=== PATIENT | female | born 1980 | race African-American/Black ===

== ENCOUNTER 2017-01-26 21:17 | Emergency (ER) | payer MEDICARE, OTHER ==
[~2017-01-26 21:17] MED LIST: BUTA1CAP PO; IBUP800T23 PO; ROBA750T PO; ZOFR4TAB PO
[2017-01-26 21:18] VITALS: BP 123/61; PULSE 90; RESP 16; TEMP 98.4; O2SAT 98
[2017-01-26] MEDS ORDERED: SODIUM CHLOR 0.9% 1000 ML INJ 1,000 ML IV ONE (23:43)
[2017-01-26] MEDS ORDERED: diphenhydrAMINE HCL 50 MG/ML VIAL IV PUSH ONE (23:45)
[2017-01-26] MEDS ORDERED: DEXAMETHASONE SOD PHOS 20 MG/5 ML VIAL IV PUSH ONE (23:45)
[2017-01-26] MEDS ORDERED: METOCLOPRAMIDE HCL 10 MG/2 ML VIAL IVP ONE (23:45)
[2017-01-26] MEDS ORDERED: SODIUM CHLORIDE 0.9% FLUSH 5 ML FLUSH IVF PRN (23:45)
--- NOTE | 2017-01-27 00:09 | PD ---
HPI Chief Complaint: Headache Time Seen by Provider: 23:40 Travel History International Travel<30 days: No Contact w/Intl Traveler<30days: No Traveled to known affect area: No History of Present Illness HPI Patient is a 36-year-old female with history of migraines, presents to emergency room with complaints of migraine. Patient reports that she has had migraines for the past 4 years, reports she usually treats herself with over-the -counter medications as she did not have health insurance. Patient reports that she recently did get health insurance and does have follow-up appointment with her primary care doctor on Wednesday. Patient reports that she woke up this morning with a headache. Reports that her headache feels similar to her past headaches. Reports that she does have nausea and photophobia with her symptoms. Reports that this is not the worst headache of her life, reports that every time she these symptoms, she comes to the ER and receives a migraine cocktail which usually helps with her symptoms. Reports that this is not a thunderclap headache. No vision changes. PFSH Past Medical History Anemia: Yes High Cholesterol: Yes Diabetes: Yes Patient Takes Glucophage: No Diminished Hearing: No Medical other: Yes (back pain) Migraines: Yes Tetanus Vaccination: < 5 Years Influenza Vaccination: No ?: Not LMP: 01/20/17 : 4 Para: 4 Miscarriage: 0 : 0 Tubal Ligation: Yes Past Surgical History Surgical History: No Previous Surgery Social History Alcohol Use: No Tobacco Use: Yes (one per day) Substance Use: No Allergies-Medications (Allergen,Severity, Reaction): Coded Allergies: No Known Allergies (Verified , 01/26/17) Reported Meds & Prescriptions Reported Meds & Active Scripts Active Robaxin (Methocarbamol) 750 Mg Tab 750 Mg PO QID Reported Zofran (Ondansetron HCl) 4 Mg Tab 4 Mg PO Q6HR PRN Ibuprofen 800 Mg Tab 800 Mg PO Q8H PRN Fioricet (Uovumczptr-Ljbzrkstshqul-Kdxbvphc) 50-300-40 Mg Cap 1 Cap PO Q6HR PRN Review of Systems General / Constitutional: No: Fever Eyes: No: Visual changes HENT: No: Headaches Cardiovascular: No: Chest Pain or Discomfort Respiratory: No: Shortness of Breath Gastrointestinal: Positive: Nausea, No: Abdominal Pain Genitourinary: No: Dysuria Musculoskeletal: No: Pain Skin: No Rash Neurologic: Positive: Headache, No: Weakness Psychiatric: No: Depression Endocrine: No: Polydipsia Hematologic/Lymphatic: No: Easy Bruising Physical Exam Narrative GENERAL: No acute distress, nontoxic SKIN: Warm and dry. HEAD: Atraumatic. Normocephalic. EYES: Pupils equal and round. No scleral icterus. No injection or drainage. ENT: No nasal bleeding or discharge. Mucous membranes pink and moist. NECK: Trachea midline. No JVD. CARDIOVASCULAR: Regular rate and rhythm. No murmur appreciated. RESPIRATORY: No accessory muscle use. Clear to auscultation. Breath sounds equal bilaterally. GASTROINTESTINAL: Abdomen soft, non-tender, nondistended. Hepatic and splenic margins not palpable. MUSCULOSKELETAL: No obvious deformities. No clubbing. No cyanosis. No edema. NEUROLOGICAL: Awake and alert. No obvious cranial nerve deficits. Motor grossly within normal limits. Normal speech. PSYCHIATRIC: Appropriate mood and affect; insight and judgment normal. Data Data Last Documented VS Vital Signs Date Time Temp Pulse Resp B/P Pulse Ox O2 Delivery O2 Flow Rate FiO2 01/26/17 21:18 98.4 90 16 123/61 98 Room Air Orders Complete Blood Count With Diff (01/26/17 23:43) Comprehensive Metabolic Panel (01/26/17 23:43) Prothrombin Time / Inr (Pt) (01/26/17 23:43) Act Partial Throm Time (Ptt) (01/26/17 23:43) Ct Brain W/O Iv Contrast(Rout) (01/26/17 23:43) Iv Access Insert/Monitor (01/26/17 23:43) Sodium Chloride 0.9% Flush (Ns Flush) (01/26/17 23:45) Metoclopramide Inj (Reglan Inj) (01/26/17 23:45) Sodium Chlor 0.9% 1000 Ml Inj (Ns 1000 M (01/26/17 23:43) Ed Urine Pregnancytest Poc (01/26/17 23:43) Dexamethasone Inj (Decadron Inj) (01/26/17 23:45) Diphenhydramine Inj (Benadryl Inj) (01/26/17 23:45) Labs Laboratory Tests Test 01/26/17 23:55 White Blood Count 9.9 TH/MM3 Red Blood Count 5.12 MIL/MM3 Hemoglobin 11.6 GM/DL Hematocrit 36.4 % Mean Corpuscular Volume 71.1 FL Mean Corpuscular Hemoglobin 22.6 PG Mean Corpuscular Hemoglobin 31.8 % Concent Red Cell Distribution Width 14.9 % Platelet Count 301 TH/MM3 Mean Platelet Volume 7.8 FL Neutrophils (%) (Auto) 60.2 % Lymphocytes (%) (Auto) 32.8 % Monocytes (%) (Auto) 4.7 % Eosinophils (%) (Auto) 1.6 % Basophils (%) (Auto) 0.7 % Neutrophils # (Auto) 6.0 TH/MM3 Lymphocytes # (Auto) 3.3 TH/MM3 Monocytes # (Auto) 0.5 TH/MM3 Eosinophils # (Auto) 0.2 TH/MM3 Basophils # (Auto) 0.1 TH/MM3 CBC Comment AUTO DIFF Prothrombin Time 10.2 SEC Prothromb Time International 0.9 RATIO Ratio Activated Partial 26.9 SEC Thromboplast Time Sodium Level 144 MEQ/L Potassium Level 4.5 MEQ/L Chloride Level 110 MEQ/L Carbon Dioxide Level 26.2 MEQ/L Anion Gap 8 MEQ/L Blood Urea Nitrogen 8 MG/DL Creatinine 0.65 MG/DL Estimat Glomerular Filtration 123 ML/MIN Rate Random Glucose 86 MG/DL Calcium Level 8.8 MG/DL Total Bilirubin 0.2 MG/DL Aspartate Amino Transf 25 U/L (AST/SGOT) Alanine Aminotransferase 18 U/L (ALT/SGPT) Alkaline Phosphatase 72 U/L Total Protein 7.8 GM/DL Albumin 4.0 GM/DL MDM Medical Decision Making Medical Screen Exam Complete: Yes Emergency Medical Condition: Yes Interpretation(s) Vital Signs Date Time Temp Pulse Resp B/P Pulse Ox O2 Delivery O2 Flow Rate FiO2 01/26/17 21:18 98.4 90 16 123/61 98 Room Air Differential Diagnosis Cephalgia, intracranial hemorrhage, intracranial mass, migraine headache Narrative Course Patient is a 36-year-old female who presents to emergency room with complaints of migraine headache. Patient reports that she has had migraines for the past 4 years, she has not seen a physician for these migraines as she has not had insurance. Patient reports that her symptoms are typical for her normal migraine headaches. Patient reports nausea with photophobia with her symptoms which began around 6 AM this morning. This is not the worst headache of her life. Patient with no fevers or chills or vision changes at this time. CT head ordered to evaluate for further pathology of her headache. Patient ordered migraine cocktail. We'll reevaluate after she receives medication CBC & BMP Diagram 01/26/17 23:[address] 01/26/17 1463 Signed Impressions: Service Date/Time: Friday, January 27, 2017 00:22 - CONCLUSION: Negative exam. Joe Lord MD Patient reevaluated, patient reports complete resolution of headache at this time. I did review all labs and all studies with patient detail. She will follow-up with her primary care doctor and return to emergency room as needed. Patient appreciative of care. Diagnosis Primary Impression: Cephalgia Qualified Code: R51 - Acute nonintractable headache, unspecified headache type Patient Instructions: General Instructions Additional Instructions: Please provide patient with a copy of her lab work and CAT scan report at discharge Please follow-up with your primary care doctor as scheduled Please bring a copy your discharge paperwork as well as your lab work and studies to doctor's office for follow-up on all studies from today Return to the emergency room as needed Return to emergency room if symptoms worsen or progress or return Disposition: 01 DISCHARGE HOME Condition: Stable Luma Talbot DO Jan 27, 2017 00:08
[2017-01-27 00:10] LABS: BASOPHIL # 0.1 TH/MM3 (0-0.2); BASOPHIL % 0.7 % (0.0-2.0); EOSINOPHIL # 0.2 TH/MM3 (0-0.4); EOSINOPHIL % 1.6 % (0.0-4.0); HEMATOCRIT 36.4 % (35.0-46.0); LYMPH % 32.8 % (9.0-44.0); LYMPHOCYTE # 3.3 TH/MM3 (1.0-4.8); MEAN CELL VOLUME 71.1 FL (80.0-100.0); MEAN CORPUSCULAR HEMOGLOBIN 22.6 PG (27.0-34.0); MEAN CORPUSCULAR HGB CONC 31.8 % (32.0-36.0); MONO % 4.7 % (0.0-8.0); NEUT % 60.2 % (16.0-70.0); PLATELET COUNT 301 TH/MM3 (150-450); RED BLOOD COUNT 5.12 MIL/MM3 (4.00-5.30); RED CELL DISTRIBUTION WIDTH 14.9 % (11.6-17.2); WHITE BLOOD COUNT 9.9 TH/MM3 (4.0-11.0)
[2017-01-27 00:19] LABS: APTT (PATIENT) 26.9 SEC (24.3-30.1); INTERNATIONAL NORMALIZED RATIO 0.9 RATIO; PROTHROMBIN TIME - PATIENT 10.2 SEC (9.8-11.6)
[2017-01-27 00:20] LABS: HEMO FLAGS AUTO DIFF
[2017-01-27 00:35] LABS: ALKALINE PHOSPHATASE 72 U/L (45-117); ALT (GPT) 18 U/L (10-53); TOTAL BILIRUBIN ADULT 0.2 MG/DL (0.2-1.0)
[2017-01-27 00:40] LABS: ANION GAP 8 MEQ/L (5-15); AST (GOT) 25 U/L (15-37); BICARBONATE 26.2 MEQ/L (21.0-32.0); BLOOD UREA NITROGEN 8 MG/DL (7-18); CHLORIDE 110 MEQ/L (98-107); GLOMERULAR FILTRATION RATE 123 ML/MIN (>89); SODIUM (NA) 144 MEQ/L (136-145)
[2017-01-27 00:42] LABS: POTASSIUM 4.5 MEQ/L (3.5-5.1)
--- NOTE | 2017-01-27 00:47 | RADRPT ---
EXAM DATE/TIME: 01/27/2017 00:22 [facility] COMPARISON: CT BRAIN W/O CONTRAST, August 18, 2016, 21:54. INDICATIONS : Headaches. RADIATION DOSE: 38.36 CTDIvol (mGy) MEDICAL HISTORY : None SURGICAL HISTORY : Tubal ligation. ENCOUNTER: Initial ACUITY: 1 day PAIN SCALE: 8/10 LOCATION: cranial TECHNIQUE: Multiple contiguous axial images were obtained of the head. Using automated exposure control and adj ustment of the mA and/or kV according to patient size, radiation dose was kept as low as reasonably a chievable to obtain optimal diagnostic quality images. FINDINGS: CEREBRUM: The ventricles are normal for age. No evidence of midline shift, mass lesion, hemorrhage or acute in farction. No extra-axial fluid collections are seen. POSTERIOR FOSSA: The cerebellum and brainstem are intact. The 4th ventricle is midline. The cerebellopontine angle i s unremarkable. EXTRACRANIAL: The visualized portion of the orbits is intact. SKULL: The calvaria is intact. No evidence of skull fracture. CONCLUSION: Negative exam. Joe Lord MD on January 27, 2017 at 0:45 Board Certified Radiologist. This report was verified electronically.
[2017-01-27 01:08] LABS: ATYPICAL LYMPHOCYTES 8 % (0-0); EOSINOPHILS 1 % (0-4); NEUTROPHIL # MANUAL DIFF 6.1 TH/MM3 (1.8-7.7); POLYS (SEG NEUTROPHILS) 62 % (16-70); WBC DIFF SAMPLE 100
[2017-01-27 01:09] LABS: OVALOCYTES 1+ (NORMAL); PLATELET ESTIMATE SMEAR NORMAL (NORMAL); PLATELET MORPHOLOGY NORMAL (NORMAL); SCAN/DIFF FINAL DIFF MANUAL
== END 2017-01-27 01:45 | disposition home or self-care (01) ==
LOC: NEPA 21:17
DX: R51 Headache (principal); E11.9 Type 2 diabetes mellitus without complications; E78.00 Pure hypercholesterolemia, unspecified; D64.9 Anemia, unspecified; Z72.0 Tobacco use
CPT/HCPCS: 70450; 80053; 84703; 85007; 85027; 85610; 85730; 96374; 96375; 99284; J1100; J1200; J2765; J7030

== ENCOUNTER 2017-05-16 21:12 | Emergency (ER) | payer MEDICARE, OTHER ==
[2017-05-16 21:15] VITALS: BP 124/69; PULSE 91; RESP 16; TEMP 99; O2SAT 100
== END 2017-05-16 22:16 | disposition left against medical advice (07) ==
LOC: NED 21:12
DX: R07.9 Chest pain, unspecified (principal)
CPT/HCPCS: 99281

== ENCOUNTER 2017-07-21 21:34 | Emergency (ER) | payer MEDICARE, OTHER | END 2017-07-21 21:59 | disposition left against medical advice (07) | LOC: NED 21:34 | DX: R07.9 Chest pain, unspecified (principal); Z53.21 Procedure and treatment not carried out due to patient leaving prior to being seen by health care provider | CPT/HCPCS: 99281 ==

== ENCOUNTER 2017-08-16 16:36 | Emergency (ER) | payer MEDICARE ==
[2017-08-16 16:38] VITALS: BP 122/67; PULSE 70; RESP 14; TEMP 98.2; O2SAT 100
--- NOTE | 2017-08-16 17:17 | PD ---
Physical Exam Date Seen by Provider: Aug 16, 2017 Time Seen by Provider: 17:16 Narrative 37 yo female here for left 5th toe injury. Occurred today. Hit it on a shopping cart. Pain is 7/10. No other complains. Vitals stable in triage. Awaiting bed placement. Data Data Last Documented VS Vital Signs Date Time Temp Pulse Resp B/P (MAP) Pulse Ox O2 Delivery O2 Flow Rate FiO2 08/16/17 16:38 98.2 70 14 122/67 (85) 100 Orders Orders Toe (Min 2vws) (08/16/17 ) [facility] Medical Record Reviewed: Yes Supervised Visit with MISTY: No Jarret Prater Aug 16, 2017 17:17
--- NOTE | 2017-08-16 17:24 | PD ---
HPI Chief Complaint: Pain: Acute or Chronic Time Seen by Provider: 17:22 Travel History International Travel<30 days: No Contact w/Intl Traveler<30days: No Traveled to known affect area: No History of Present Illness HPI 37 yo female here for left 5th toe injury. Occurred today. Hit it on a shopping cart. Pain is 7/10. No other complaints. No known drug allergies PFSH Past Medical History Anemia: Yes High Cholesterol: Yes Diabetes: Yes Diminished Hearing: No Migraines: Yes ?: Not : 4 Para: 4 Miscarriage: 0 : 0 Tubal Ligation: Yes Social History Alcohol Use: No Tobacco Use: Yes (one per day) Substance Use: No Allergies-Medications (Allergen,Severity, Reaction): Coded Allergies: No Known Allergies (Verified , 08/16/17) Reported Meds & Prescriptions Reported Meds & Active Scripts Active Robaxin (Methocarbamol) 750 Mg Tab 750 Mg PO QID Reported Zofran (Ondansetron HCl) 4 Mg Tab 4 Mg PO Q6HR PRN Ibuprofen 800 Mg Tab 800 Mg PO Q8H PRN Fioricet (Wlujohsgsb-Brnqufotiwiig-Xnkciyxw) 50-300-40 Mg Cap 1 Cap PO Q6HR PRN Review of Systems Except as stated in HPI: all other systems reviewed are Neg General / Constitutional: No: Fever Eyes: No: Visual changes HENT: No: Headaches Cardiovascular: No: Chest Pain or Discomfort Respiratory: No: Shortness of Breath Gastrointestinal: No: Abdominal Pain Genitourinary: No: Dysuria Musculoskeletal: Positive: Arthralgias, Limited ROM, Pain (see history of present illness) Skin: No Rash Neurologic: No: Weakness Psychiatric: No: Depression Endocrine: No: Polydipsia Hematologic/Lymphatic: No: Easy Bruising Physical Exam Narrative GENERAL: Patient appears in mild to moderate distress. SKIN: Warm and dry. Normal color. Normal turgor. No open wound or significant ecchymosis noted HEAD: Atraumatic. Normocephalic. EYES: Pupils equal and round. No scleral icterus. No injection or drainage. ENT: No nasal bleeding or discharge. Mucous membranes pink and moist. Pharynx is clear NECK: Trachea midline. Supple and nontender CARDIOVASCULAR: Regular rate and rhythm. RESPIRATORY: No accessory muscle use. Clear to auscultation. Breath sounds equal bilaterally. MUSCULOSKELETAL: Extremities without clubbing, cyanosis, or edema. Patient has pain with palpation and movement of the left fifth digit. No obvious deformity or swelling is noted. NEUROLOGICAL: Awake and alert. No obvious cranial nerve deficits. Motor grossly within normal limits. Five out of 5 muscle strength in the arms and legs. Normal speech. PSYCHIATRIC: Appropriate mood and affect; insight and judgment normal. Data Data Last Documented VS Vital Signs Date Time Temp Pulse Resp B/P (MAP) Pulse Ox O2 Delivery O2 Flow Rate FiO2 08/16/17 16:38 98.2 70 14 122/67 (85) 100 Orders Orders Toe (Min 2vws) (08/16/17 ) [facility] Medical Decision Making Medical Screen Exam Complete: Yes Emergency Medical Condition: Yes Differential Diagnosis Left foot contusion. Left toe contusion. Possible fracture. Dislocation. Narrative Course X-rays performed show no fracture or dislocation. Patient is given Toradol 60 mg IM. Patient is placed in a postop shoe. Patient continued on ibuprofen 600 mg 4 times a day #40. Patient is to ice the area and follow-up as needed. Diagnosis Primary Impression: Contusion of fifth toe, left Qualified Codes: S90.122A - Contusion of left lesser toe(s) without damage to nail, initial encounter Referrals: Primary Care Physician Patient Instructions: Contusion in Adults (ED), General Instructions Additional Instructions: X-rays performed show no fracture or dislocation. Patient is given Toradol 60 mg IM. Patient is placed in a postop shoe. Patient continued on ibuprofen 600 mg 4 times a day #40. Patient is to ice the area and follow-up as needed. Med/Other Pt SpecificInfo: Prescription(s) given Disposition: 01 DISCHARGE HOME Condition: Stable Harvey Grant Aug 16, 2017 17:23
--- NOTE | 2017-08-16 17:35 | RADRPT ---
EXAM DATE/TIME: 08/16/2017 17:30 [facility] COMPARISON: No previous studies available for comparison. INDICATIONS : Left foot, fifth digit pain. Patient stubbed toe on a shopping cart at the store. MEDICAL HISTORY : None. SURGICAL HISTORY : None. ENCOUNTER: Initial ACUITY: 1 day PAIN SCORE: 7/10 LOCATION: Left foot, fifth digit. FINDINGS: Examination of the fifth digit of the left foot demonstrates no evidence of fracture or dislocation. No radiopaque foreign bodies are seen. The soft tissues are intact. CONCLUSION: No acute disease. Jos Elise MD on August 16, 2017 at 17:33 Board Certified Radiologist. This report was verified electronically.
[2017-08-16] MEDS ORDERED: IBUP-232 PO (17:50)
[2017-08-16] MEDS ORDERED: KETOROLAC TROMETHAMINE 60 MG/2 ML (IM) VIAL IM ONE (18:00)
== END 2017-08-16 18:32 | disposition home or self-care (01) ==
LOC: NEPK 16:36
DX: S90.122A Contusion of left lesser toe(s) without damage to nail, initial encounter (principal); W22.8XXA Striking against or struck by other objects, initial encounter; Y93.01 Activity, walking, marching and hiking; Y92.512 Supermarket, store or market as the place of occurrence of the external cause; E11.9 Type 2 diabetes mellitus without complications; Z72.0 Tobacco use
CPT/HCPCS: 73660; 96372; 99284; J1885; L3260

== ENCOUNTER 2017-11-24 23:18 | Emergency (ER) | payer MEDICARE, OTHER ==
[~2017-11-24] VITALS: Ht 160 cm; Wt 72.7 kg
[~2017-11-24 23:18] MED LIST changes: +IBUP-232 PO; +IBUP1TAB7 PO; -IBUP800T23 PO
[2017-11-24 23:21] VITALS: BP 128/67; PULSE 87; RESP 16; TEMP 98.5; O2SAT 98
--- NOTE | 2017-11-24 23:30 | PD ---
HPI Chief Complaint: Cold / Flu Symptoms Time Seen by Provider: 23:30 Travel History International Travel<30 days: No Contact w/Intl Traveler<30days: No Traveled to known affect area: No History of Present Illness HPI 37-year-old female with no significant medical history presents emergency department for evaluation of cough and chest congestion, sore throat, body aches , and fever worsening over the last 2 days. Moderate in severity. Patient states that she took Tylenol and ibuprofen and her fever has gone away but the other symptoms remain. She feels that her congestion is worsening. Denies any nausea, vomiting, diarrhea. Patient has no other symptoms to report. PFSH Past Medical History Anemia: Yes High Cholesterol: Yes Diabetes: Yes Diminished Hearing: No Migraines: Yes LMP: 11-13-17 : 4 Para: 4 Miscarriage: 0 : 0 Tubal Ligation: Yes Social History Alcohol Use: No Tobacco Use: Yes (one per day) Substance Use: No Allergies-Medications (Allergen,Severity, Reaction): Coded Allergies: No Known Allergies (Verified Adverse Reaction, Unknown, 11/24/17) Reported Meds & Prescriptions Reported Meds & Active Scripts Active Prednisone 50 Mg Tab 50 Mg PO DAILY 5 Days Proair Hfa 8.5 GM Inh (Albuterol Sulfate) 90 Mcg/Act Aer 2 Puff INH Q4HR PRN 108 mcg/actuation Tessalon Perles (Benzonatate) 100 Mg Cap 100 Mg PO TID PRN Ibuprofen 600 Mg Tab 600 Mg PO Q6H PRN Robaxin (Methocarbamol) 750 Mg Tab 750 Mg PO QID Reported Zofran (Ondansetron HCl) 4 Mg Tab 4 Mg PO Q6HR PRN Ibuprofen 800 Mg Tab 800 Mg PO Q8H PRN Fioricet (Uwsnpeunlj-Wufnsktwxncsl-Mmeewqpl) 50-300-40 Mg Cap 1 Cap PO Q6HR PRN Review of Systems Except as stated in HPI: all other systems reviewed are Neg Physical Exam Narrative GENERAL: Well-nourished female patient, ambulatory and in no acute distress. SKIN: Focused skin assessment warm/dry. HEAD: Atraumatic. Normocephalic. EYES: Pupils equal and round. No scleral icterus. No injection or drainage. ENT: No nasal bleeding or discharge. Mucous membranes pink and moist. Nasal turbinates are inflamed. Pharynx is erythematous with no exudate. NECK: Trachea midline. No JVD. CARDIOVASCULAR: Regular rate and rhythm. No murmur appreciated. RESPIRATORY: No accessory muscle use. Coarse but Clear to cough. Breath sounds equal bilaterally. GASTROINTESTINAL: Abdomen soft, non-tender, nondistended. Hepatic and splenic margins not palpable. MUSCULOSKELETAL: No obvious deformities. No clubbing. No cyanosis. No edema. NEUROLOGICAL: Awake and alert. No obvious cranial nerve deficits. Motor grossly within normal limits. Normal speech. Data Data Last Documented VS Vital Signs Date Time Temp Pulse Resp B/P (MAP) Pulse Ox O2 Delivery O2 Flow Rate FiO2 11/25/17 00:22 11/24/17 23:21 98.5 87 16 98 Orders Orders Influenzae A/B Antigen (11/24/17 23:34) Group A Rapid Strep Screen (11/24/17 23:34) Dexamethasone Inj (Decadron Inj) (11/24/17 23:45) Strep Culture (Group A) (11/24/17 23:47) Ed Discharge Order (11/25/17 00:14) [facility] Medical Decision Making Medical Screen Exam Complete: Yes Emergency Medical Condition: Yes Medical Record Reviewed: Yes Differential Diagnosis Common cold versus bronchitis versus pneumonia versus influenza Narrative Course 37-year-old female presents emergency department for evaluation. Patient appears overall well. Does have some coarse breath sounds that clear to cough. Pharynx is mildly erythematous there are no exudates. Influenza and rapid strep screen are negative. I do believe this is a viral upper respiratory infection. Patient will be prescribed symptomatic treatment. She is counseled on care. She agrees to return immediately with any acute worsening symptoms. Diagnosis Primary Impression: URI (upper respiratory infection) Qualified Codes: J06.9 - Acute upper respiratory infection, unspecified; B97.89 - Other viral agents as the cause of diseases classified elsewhere Referrals: Primary Care Physician Patient Instructions: General Instructions, Upper Respiratory Infection (ED) Additional Instructions: Humidified air may help to alleviate symptoms Follow-up with a primary care provider Tylenol or ibuprofen instructed on the package as needed for fever and/or pain Rest Maintain adequate oral hydration Return immediately to the emergency department with any acute worsening of symptoms Med/Other Pt SpecificInfo: Prescription(s) given Scripts Prednisone (Prednisone) 50 Mg Tab 50 MG PO DAILY for 5 Days, #5 TAB 0 Refills Prov: Kristine Guardado 11/25/17 Albuterol 8.5 GM Inh (Proair Hfa 8.5 GM Inh) 90 Mcg/Act Aer 2 PUFF INH Q4HR Y for SHORTNESS OF BREATH, #1 INHALER 0 Refills 108 mcg/actuation Prov: Kristine Guardado 11/25/17 Benzonatate (Tessalon Perles) 100 Mg Cap 100 MG PO TID Y for COUGH, #20 CAP 0 Refills Prov: Kristine Guardado 11/25/17 Disposition: 01 DISCHARGE HOME Condition: Stable Kristine Guardado Nov 24, 2017 23:30
[2017-11-24] MEDS ORDERED: DEXAMETHASONE SOD PHOS 4 MG/ML VIAL IM ONE (23:45)
[2017-11-25] MEDS ORDERED: ALBUAER3 INH (00:17)
[2017-11-25] MEDS ORDERED: PRED50 PO (00:17)
[2017-11-25] MEDS ORDERED: BENZ100 PO (00:17)
== END 2017-11-25 00:22 | disposition home or self-care (01) ==
LOC: NEPD 23:18
DX: J06.9 Acute upper respiratory infection, unspecified (principal); E11.9 Type 2 diabetes mellitus without complications; E78.00 Pure hypercholesterolemia, unspecified; F17.200 Nicotine dependence, unspecified, uncomplicated
CPT/HCPCS: 87081; 87804; 87880; 96372; 99283; J1100

== ENCOUNTER 2017-12-28 14:07 | Emergency (ER) | payer OTHER, MEDICARE ==
[~2017-12-28] VITALS: Ht 165.1 cm; Wt 77.3 kg
[~2017-12-28 14:07] MED LIST changes: +ALBUAER3 INH; +BENZ100 PO; +PRED50 PO
[2017-12-28 14:09] VITALS: BP 122/67; PULSE 96; RESP 18; TEMP 99.7; O2SAT 100
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
[2017-12-28] MEDS ORDERED: ALBUAER3 INH (16:17)
[2017-12-28] MEDS ORDERED: ROBA750T PO (16:17)
[2017-12-28] MEDS ORDERED: DICL75TA PO (16:17)
[2017-12-28] MEDS ORDERED: AZIT250T3 PO (16:17)
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
== END 2017-12-28 16:43 | disposition home or self-care (01) ==
LOC: NEPK 14:07
DX: S00.90XA Unspecified superficial injury of unspecified part of head, initial encounter (principal); J06.9 Acute upper respiratory infection, unspecified; F17.200 Nicotine dependence, unspecified, uncomplicated; V47.5XXA Car driver injured in collision with fixed or stationary object in traffic accident, initial encounter; Y92.410 Unspecified street and highway as the place of occurrence of the external cause
CPT/HCPCS: 70450; 99283

== ENCOUNTER 2018-01-25 22:12 | Emergency (ER) | payer MEDICARE, OTHER ==
[~2018-01-25] VITALS: Ht 165.1 cm; Wt 77.0 kg
[~2018-01-25 22:12] MED LIST changes: +AZIT250T3 PO; +DICL75TA PO
[2018-01-25 22:25] VITALS: BP 147/77; PULSE 87; RESP 16; TEMP 98.2; O2SAT 99
== END 2018-01-25 22:34 | disposition left against medical advice (07) ==
LOC: NED 22:12
DX: Z03.89 Encounter for observation for other suspected diseases and conditions ruled out (principal)
CPT/HCPCS: 99281

== ENCOUNTER 2018-02-19 01:51 | Emergency (ER) | payer OTHER ==
[~2018-02-19] VITALS: Ht 165.1 cm; Wt 75.0 kg
[2018-02-19 02:08] VITALS: BP 111/61; PULSE 87; RESP 18; TEMP 98.3; O2SAT 100
[2018-02-19] MEDS ORDERED: TRAZ100T10 PO (02:23)
[2018-02-19] MEDS ORDERED: HYDR-3580 PO (02:23)
[2018-02-19] MEDS ORDERED: ORPHENADRINE INJ 60 MG/2 ML AMP IM ONE (03:00)
[2018-02-19] MEDS ORDERED: KETOROLAC TROMETHAMINE 60 MG/2 ML (IM) VIAL IM ONE (03:00)
[2018-02-19] MEDS ORDERED: ROBA500T PO (03:01)
[2018-02-19] MEDS ORDERED: DICL75TA PO (03:01)
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
== END 2018-02-19 03:20 | disposition home or self-care (01) ==
LOC: NEPD 01:51
DX: M54.16 Radiculopathy, lumbar region (principal); D64.9 Anemia, unspecified; F17.210 Nicotine dependence, cigarettes, uncomplicated; Z79.899 Other long term (current) drug therapy
CPT/HCPCS: 96372; 99283; J1885; J2360

== ENCOUNTER 2018-03-02 09:08 | Emergency (ER) | payer OTHER ==
[~2018-03-02] VITALS: Ht 165.1 cm; Wt 74.0 kg
[~2018-03-02 09:08] MED LIST changes: -AZIT250T3 PO; -BENZ100 PO; -BUTA1CAP PO; +HYDR-3580 PO; -IBUP-232 PO; -IBUP1TAB7 PO; -PRED50 PO; +ROBA500T PO; -ROBA750T PO; +TRAZ100T10 PO; -ZOFR4TAB PO
[2018-03-02 09:12] VITALS: BP 130/88; PULSE 97; RESP 17; TEMP 98.2; O2SAT 99
--- NOTE | 2018-03-02 09:16 | PD ---
HPI Chief Complaint: Oral / Dental Pain or Problem Time Seen by Provider: 09:15 Travel History International Travel<30 days: No Contact w/Intl Traveler<30days: No Traveled to known affect area: No History of Present Illness HPI 37-year-old -[place] Citizen female presents emergency department with 2 day history of increasing dental pain and swelling of the right lower jaw. Patient states she went to her dentist this morning who sent her here immediately. She denies fever, chills, drainage, or difficulty swallowing. Pain is currently 8 out of 10. It is sensitive to cold but not hot. She has no known drug allergies PFSH Past Medical History Anemia: Yes Diminished Hearing: No Immunizations Current: Yes Migraines: Yes : 4 Para: 4 Miscarriage: 0 : 0 Tubal Ligation: Yes Social History Alcohol Use: Yes (occiasionally) Tobacco Use: Yes (3-4 CIGS DAILY) Substance Use: No Allergies-Medications (Allergen,Severity, Reaction): Coded Allergies: No Known Allergies (Verified Adverse Reaction, Unknown, 03/02/18) Reported Meds & Prescriptions Reported Meds & Active Scripts Active Robaxin (Methocarbamol) 500 Mg Tab 500 Mg PO QID [address] (Diclofenac Sodium) 75 Mg Tabdr 75 Mg PO BID 14 Days Proair Hfa 8.5 GM Inh (Albuterol Sulfate) 90 Mcg/Act Aer 2 Puff INH Q4HR PRN 108 mcg/actuation Reported Trazodone (Trazodone HCl) 100 Mg Tablet 100 Mg PO HS Hydrocodone-Acetaminophen 7.5 Mg-325 Mg Tab 1 Tab PO Q8HR PRN Review of Systems Except as stated in HPI: all other systems reviewed are Neg General / Constitutional: No: Fever, Chills Eyes: No: Visual changes HENT: Positive: Dental Difficulties, No: Headaches, Vertigo, Lightheadedness, Sore Throat, Rhinitis, Rhinorrhea, Congestion, Nosebleed, Neck Stiffness, Neck Pain, Gingival Bleeding, Earache Cardiovascular: No: Chest Pain or Discomfort Respiratory: No: Shortness of Breath Gastrointestinal: No: Abdominal Pain Genitourinary: No: Dysuria Musculoskeletal: No: Pain Skin: No Rash Neurologic: No: Weakness Psychiatric: No: Depression Endocrine: No: Polydipsia Hematologic/Lymphatic: No: Easy Bruising Physical Exam Narrative GENERAL: Patient appears in moderate distress. SKIN: Warm and dry. Normal color. Normal turgor. No erythema or rash. HEAD: Atraumatic. Normocephalic. Patient has obvious swelling along the right lower jawline. EYES: Pupils equal and round. No scleral icterus. No injection or drainage. ENT: No nasal bleeding or discharge. Mucous membranes pink and moist. Teeth appear in fairly good condition. Patient is obvious swelling of the gumline at the base of the right first premolar. Pharynx is clear. Airways patent. Uvula is midline. No signs of Amandeep's angina. NECK: Trachea midline. Supple and nontender. No significant lymphadenopathy per CARDIOVASCULAR: Regular rate and rhythm. RESPIRATORY: No accessory muscle use. Clear to auscultation. Breath sounds equal bilaterally. MUSCULOSKELETAL: Extremities without clubbing, cyanosis, or edema. No obvious deformities. NEUROLOGICAL: Awake and alert. No obvious cranial nerve deficits. Motor grossly within normal limits. Five out of 5 muscle strength in the arms and legs. Normal speech. PSYCHIATRIC: Appropriate mood and affect; insight and judgment normal. Data Data Last Documented VS Vital Signs Date Time Temp Pulse Resp B/P (MAP) Pulse Ox O2 Delivery O2 Flow Rate FiO2 03/02/18 09:12 98.2 97 17 130/88 (102) 99 MDM Medical Decision Making Medical Screen Exam Complete: Yes Emergency Medical Condition: Yes Differential Diagnosis Dental pain. Dental caries. Dental abscess. Narrative Course Patient is placed on penicillin VK 500 mg 4 times daily 10 days. Patient given ibuprofen 800 mg 3 times daily with food #30. Patient is given Tylenol 3 1 every 6 hours as needed pain #20. Patient is given Magic mouthwash as directed every 2 hours #120 mL's. Patient to follow-up with dental services in the next week. Diagnosis Primary Impression: Dental abscess Referrals: Dentist Patient Instructions: Dental Abscess (ED), General Instructions Additional Instructions: Patient is placed on penicillin VK 500 mg 4 times daily 10 days. Patient given ibuprofen 800 mg 3 times daily with food #30. Patient is given Tylenol 3 1 every 6 hours as needed pain #20. Patient is given Magic mouthwash as directed every 2 hours #120 mL's. Patient to follow-up with dental services in the next week. Med/Other Pt SpecificInfo: Prescription(s) given Disposition: 01 DISCHARGE HOME Condition: Stable Harvey Grant PA Mar 02, 2018 09:16
[2018-03-02] MEDS ORDERED: HYDR-3288 PO (09:20)
[2018-03-02] MEDS ORDERED: TYLETAB34 PO (09:26)
[2018-03-02] MEDS ORDERED: PENI500T PO (09:26)
[2018-03-02] MEDS ORDERED: MAGICADU2 SWISH-SPIT (09:26)
[2018-03-02] MEDS ORDERED: IBUP1TAB7 PO (09:26)
== END 2018-03-02 09:45 | disposition home or self-care (01) ==
LOC: NEPK 09:08
DX: K04.7 Periapical abscess without sinus (principal); D64.9 Anemia, unspecified; F17.210 Nicotine dependence, cigarettes, uncomplicated; Z79.899 Other long term (current) drug therapy
CPT/HCPCS: 99283

== ENCOUNTER 2018-03-28 08:44 | Emergency (ER) | payer OTHER, MEDICARE ==
[2018-03-28] MEDS: KETOROLAC TROMETHAMINE 60 MG/2 ML (IM) VIAL IM (09:28)
[2018-03-28] MEDS: ORPHENADRINE INJ 60 MG/2 ML AMP IM (09:28)
== END 2018-03-28 09:58 | disposition home or self-care (01) ==
LOC: NEPD 08:44
DX: M62.838 Other muscle spasm (principal); M54.2 Cervicalgia; G89.29 Other chronic pain; V89.2XXD Person injured in unspecified motor-vehicle accident, traffic, subsequent encounter; F32.9 Major depressive disorder, single episode, unspecified; F17.210 Nicotine dependence, cigarettes, uncomplicated; Z79.899 Other long term (current) drug therapy
CPT/HCPCS: 96372; 99283-25